=== PATIENT | male | born 1970 | race Hispanic/Latino ===

== ENCOUNTER 2017-11-05 14:15 | Emergency (ER) | payer OTHER ==
[2017-11-05] MEDS ORDERED: ASPIRIN 325 MG TAB ONE (16:10)
[2017-11-05 16:13] LABS: Absolute Lymphocytes (CBC) 1.6 K/uL (0.7-4.9); Absolute Monocytes 0.5 K/uL (0.1-1.3); Basophils % 0.6 % (0-1.3); Eosinophils % 1.6 % (0-4.4); Hematocrit 43.3 % (39.6-49.0); Lymphocytes % 19.2 % (15.3-44.8); MCV 94.9 fL (80-100); MPV 7.6 fL (7.6-11.3); Monocytes % 6.2 % (3.3-12.3); RBC Red Blood Cell Count 4.56 M/uL (4.33-5.43)
[2017-11-05 16:21] LABS: Bicarbonate 33 mEq/L (21-31); Glucose Level 65 mg/dL (65-120); Potassium 3.6 mEq/L (3.6-5.0); Sodium Level 138 mEq/L (135-145)
[2017-11-05 16:23] LABS: Protime INR 1.03
[2017-11-05 16:27] LABS: ALT/SGPT 18 IU/L (10-60); AST/SGOT 19 IU/L (10-42); Albumin 4.3 g/dL (3.2-5.5); BUN Blood Urea Nitrogen 19 mg/dL (6-20); Bilirubin Direct 0.2 mg/dL (0-0.2); Bilirubin Total 1.3 mg/dL (0.3-1.2); Glomerular Filtration Rate > 90 mL/min (=/>90); Protein, Total 7.6 g/dL (6.0-8.3)
--- NOTE | 2017-11-05 16:59 | RAD REPORT ---
EXAM DESCRIPTION: RAD - Chest Single View - 11/05/2017 4:53 pm CLINICAL HISTORY: Chest pain, shortness of breath. COMPARISON: None. FINDINGS: Portable technique limits examination quality. The lungs are underinflated but grossly clear. The heart is normal in size. No displaced fractures. IMPRESSION: Underinflated lungs.
--- NOTE | 2017-11-05 17:03 | ER ---
Nurse's Notes [facility] Name: Cristian Lan Age: 47 yrs Sex: Male : 1970 Arrival Date: 11/05/2017 Time: 14:21 Bed 15 Private MD: Diagnosis: Non-ST elevation (NSTEMI) myocardial infarction Presentation: 11/05 14:25 Presenting complaint: Patient states: Chest pain and SOB that is worse with deep aj breathing. Patient recently stopped taking his HTN medications and has been taking Phentermine for 2 weeks. Transition of care: patient was not received from another setting of care. Onset of symptoms was November 03, 2017. Care prior to arrival: None. 14:25 Method Of Arrival: Ambulatory aj 14:25 Acuity: JESSIKA 3 aj Triage Assessment: 14:27 General: Appears in no apparent distress. comfortable, Behavior is calm, cooperative, aj appropriate for age. Pain: Complains of pain in chest Pain currently is 3 out of 10 on a pain scale. Neuro: Level of Consciousness is awake, alert, obeys commands, Oriented to person, place, time, situation. Respiratory: Reports shortness of breath Airway is patent Respiratory effort is even, unlabored, Respiratory pattern is regular, symmetrical, Onset: The symptoms/episode began/occurred gradually, the patient has mild shortness of breath. Derm: Skin is intact, is healthy with good turgor, Skin is pink, warm \\T\\ dry. Historical: - Allergies: 14:27 No Known Allergies; aj - Home Meds: 14:27 phentermine 37.5 mg oral cap 1 cap once daily [Active]; aj 17:58 irbesartan-hydrochlorothiazide 150-12.5 mg oral tab 1 tab once daily [Active]; tw2 - PMHx: 14:27 Hypertension; aj - PSHx: 14:27 None; aj - Immunization history:: Adult Immunizations up to date. - Social history:: Smoking status: Patient/guardian denies using tobacco. Screenin:56 Abuse screen: Denies threats or abuse. Nutritional screening: No deficits noted. tw2 Tuberculosis screening: No symptoms or risk factors identified. Fall Risk None identified. Assessment: 15:45 General: Appears in no apparent distress. well groomed, Behavior is calm, cooperative, tw2 appropriate for age. Pain: Complains of pain in chest. Neuro: Level of Consciousness is awake, alert, obeys commands, Oriented to person, place, time, situation. Cardiovascular: Heart tones S1 S2 Capillary refill < 3 seconds Patient's skin is warm and dry. Rhythm is sinus rhythm. Cardiovascular: Reports chest pain. Respiratory: Airway is patent Respiratory effort is even, unlabored, Respiratory pattern is regular, symmetrical, Breath sounds are clear bilaterally. GI: No signs and/or symptoms were reported involving the gastrointestinal system. Abdomen is flat, Bowel sounds present X 4 quads. : No signs and/or symptoms were reported regarding the genitourinary system. EENT: No signs and/or symptoms were reported regarding the EENT system. Derm: No signs and/or symptoms reported regarding the dermatologic system. Musculoskeletal: Range of motion: intact in all extremities. 16:41 Reassessment: Patient appears in no apparent distress at this time. No changes from tw2 previously documented assessment. Patient and/or family updated on plan of care and expected duration. Pain level reassessed. Patient is alert, oriented x 3, equal unlabored respirations, skin warm/dry/pink. 17:40 Reassessment: Patient appears in no apparent distress at this time. No changes from tw2 previously documented assessment. Patient and/or family updated on plan of care and expected duration. Pain level reassessed. Patient is alert, oriented x 3, equal unlabored respirations, skin warm/dry/pink. 18:22 Reassessment: Patient appears in no apparent distress at this time. No changes from tw2 previously documented assessment. Patient and/or family updated on plan of care and expected duration. Pain level reassessed. Patient is alert, oriented x 3, equal unlabored respirations, skin warm/dry/pink. 19:30 General: Appears in no apparent distress. uncomfortable, well groomed, Behavior is ar4 calm, cooperative. Pain: Complains of pain in posterior chest and epigastric region Pain radiates to bilateral upper ribs Pain currently is 0 out of 10 on a pain scale. at worst was 7 out of 10 on a pain scale. Quality of pain is described as squeezing, Pain began 1 day ago. Is continuous, Alleviated by rest, Aggravated by Pt. reports, "Taking deep breaths makes it worse." Noted to be grimacing, Also complains of. Neuro: Level of Consciousness is awake, alert, obeys commands, Oriented to person, place, time, situation, Fashion Buyer are equal bilaterally Moves all extremities. Speech is normal, Facial symmetry appears normal, Pupils are PERRLA. Cardiovascular: Reports chest pain, shortness of breath, Pt. reports, "Shortness of breath is mild today, but yesterday it was moderate." Heart tones S1 S2 present Capillary refill < 3 seconds is brisk in right fingers Patient's skin is warm and dry. Pulses are all present. Rhythm is regular Chest pain is described as mild, quality is squeezing, is located in posterior chest wall epigastric area radiates to bilateral upper ribs began 1 day ago episodes are continuous is aggravated by breathing, is alleviated by rest. Respiratory: Airway is patent Respiratory effort is even, unlabored, Respiratory pattern is regular, symmetrical, Breath sounds are clear bilaterally. GI: Abdomen is flat, non-distended, Bowel sounds present X 4 quads. Abd is soft and non tender X 4 quads. : No signs and/or symptoms were reported regarding the genitourinary system. EENT: No signs and/or symptoms were reported regarding the EENT system. Derm: Skin is intact, is healthy with good turgor, Skin is dry, Skin is normal, Skin temperature is warm. Musculoskeletal: Range of motion: intact in all extremities. 19:50 General: repeat Troponin drawn and sent to lab. tc3 20:21 General: report called to [facility] spoke with Greyson Jorgensen RN utilized [facility] tc3 Communication, questions answered as warranted. Vital Signs: 14:27 BP 127 / 97; Pulse 93; Resp 19; Temp 97.8; Pulse Ox 98% on R/A; Weight 112.04 kg; aj Height 6 ft. 1 in. (185.42 cm); Pain 3/10; 15:45 BP 123 / 89; Pulse 86; Resp 20; Pulse Ox 99% on R/A; tw2 16:40 BP 120 / 91; Pulse 85; Resp 20; Pulse Ox 99% on R/A; tw2 17:40 BP 126 / 93; Pulse 84; Resp 17; Pulse Ox 100% on R/A; tw2 17:48 BP 126 / 92; Pulse 89; Resp 17; Pulse Ox 99% on R/A; tw2 18:21 BP 125 / 88; Pulse 76; Resp 22; Pulse Ox 98% on R/A; tw2 19:30 BP 127 / 93 RA Supine (auto/); Pulse 70; Resp 17; Temp 98.3(O); Pulse Ox 99% on R/A; ar4 Pain 0/10; 20:30 BP 119 / 95; Pulse 78; Resp 19; Temp 97.9(O); Pulse Ox 98% on R/A; Pain 0/10; tc3 14:27 Body Mass Index 32.59 (112.04 kg, 185.42 cm) aj 19:30 Pt. reports, "I have no pain right now, but yesterday it was a 7/10." ar4 Vitals: 20:30 Cardiac Rhythm Assessment Regular Sinus rhythm. tc3 ED Course: 14:21 Patient arrived in ED. mr 14:26 Triage completed. aj 14:27 Arm band placed on right wrist. Patient placed in waiting room, Patient notified of aj wait time. EKG completed in triage. Results shown to MD. 14:38 EKG done, by packaging tech. vh 15:23 Georgia Call RN is Primary Nurse. tw2 15:24 Nikita Leyva NP is PHCP. pm1 15:25 Ventura Daigle MD is Attending Physician. pm1 15:45 Bed in low position. Call light in reach. bus driver/monitor on. Pulse ox on. NIBP on. tw2 15:45 No provider procedures requiring assistance completed. Inserted saline lock: 20 gauge tw2 in left antecubital area, using aseptic technique. Blood collected. 16:05 X-ray completed. Portable x-ray completed in exam room. Patient tolerated procedure mh1 well. 17:02 Beba Kumar MD is Hospitalizing Provider. pm1 19:00 Report given to LUNA Price. tw2 19:15 Primary Nurse role handed off by Georgia Call RN tc3 19:15 Dee Zapien RN is Primary Nurse. tc3 20:31 Patient transferred, IV remains in place. tc3 Administered Medications: 15:53 Drug: Aspirin 325 mg Route: PO; tw2 16:53 Follow up: Response: No adverse reaction tw2 17:02 Drug: Lovenox 1 mg/kg Route: Sub-Q; Site: right lower abdomen; tw2 17:47 Follow up: Response: No adverse reaction tw2 17:04 Drug: Lopressor (metoprolol TARTRATE) 50 mg Route: PO; tw2 17:48 Follow up: Response: No adverse reaction tw2 17:05 Drug: Lopressor 5 mg Route: IVP; Site: left antecubital; tw2 17:48 Follow up: BP 126 / 92; Pulse 89 bpm; Resp 17 bpm; Pulse Ox 99% RA tw2 17:14 Drug: PlaVIX 300 mg Route: PO; tw2 17:48 Follow up: Response: No adverse reaction tw2 Outcome: 17:03 Decision to Hospitalize by Provider. pm1 19:50 ER care complete, transfer ordered by MD. pm1 19:55 Instructed on the need for transfer. tc3 20:28 Transferred by ground EMS to [facility], Transfer form completed. X-rays sent tc3 w/ patient. Note: chart to EMS crew, report to [facility] x2 20:28 Condition: stable 20:33 Patient left the ED. tc3 20:33 Attestation : I concur with the documentation charted by LEWIS Stovall. tc3 Signatures: Sofia Crooks RN RN Zenobia Roldan Nargis Brandon mh1 Isabel Abernathy Nikita Leyva, OPTOMETRIC AIDE OPTOMETRIC AIDE pm1 Georgia Call RN RN tw2 Dee Zapien RN RN tc3 Grace Arias ar4 Corrections: (The following items were deleted from the chart) 17:58 14:27 Home Meds: irbesartan oral oral; ted [facility]
--- NOTE | 2017-11-05 17:03 | EDPHYS ---
Physician Documentation [facility] Name: Cristian Lan Age: 47 yrs Sex: Male : 1970 Arrival Date: 11/05/2017 Time: 14:21 Bed 15 Private MD: ED Physician Ventura Daigle HPI: 11/05 15:45 This 47 yrs old Male presents to ER via Ambulatory with complaints of pm1 Shortness Of Breath, Chest Pain. 15:45 The patient has shortness of breath with light activity. Onset: The symptoms/episode pm1 began/occurred yesterday. The patient's shortness of breath is aggravated by exertion, light activity, walking, is alleviated by rest. Associated signs and symptoms: Pertinent positives: SOB, Pertinent negatives: non-productive cough, productive cough. Severity of symptoms: in the emergency department the symptoms have resolved. The patient has not experienced similar symptoms in the past. The patient has not recently seen a physician. Patient with shortness of breath and chest pain with light exertion onset yesterday. Patient reports resolution of symptoms with rest. Patient has been taking phentermine for weight loss for the past 2 weeks. Stopped taking his blood pressure medication for the past 1 month due to side effects of dizziness and ED. No nausea, vomiting, or diaphoresis. Historical: - Allergies: 14:27 No Known Allergies; - Home Meds: 14:27 phentermine 37.5 mg oral cap 1 cap once daily [Active]; aj 17:58 irbesartan-hydrochlorothiazide 150-12.5 mg oral tab 1 tab once daily [Active]; 2 - PMHx: 14:27 Hypertension; aj - PSHx: 14:27 None; aj - Immunization history:: Adult Immunizations up to date. - Social history:: Smoking status: Patient/guardian denies using tobacco. ROS: 15:45 Constitutional: Negative for fever, chills, and weight loss, Eyes: Negative for injury, pm1 pain, redness, and discharge, ENT: Negative for injury, pain, and discharge, Neck: Negative for injury, pain, and swelling. 15:45 Abdomen/GI: Negative for abdominal pain, nausea, vomiting, diarrhea, and constipation, Back: Negative for injury and pain, : Negative for injury, bleeding, discharge, and swelling, MS/Extremity: Negative for injury and deformity, Skin: Negative for injury, rash, and discoloration, Neuro: Negative for headache, weakness, numbness, tingling, and seizure. 15:45 Cardiovascular: Positive for chest pain, Negative for edema, palpitations. 15:45 Respiratory: Positive for dyspnea on exertion, shortness of breath. Exam: 15:45 Constitutional: This is a well developed, well nourished patient who is awake, alert, pm1 and in no acute distress. Head/Face: Normocephalic, atraumatic. Eyes: Pupils equal round and reactive to light, extra-ocular motions intact. Lids and lashes normal. Conjunctiva and sclera are non-icteric and not injected. Cornea within normal limits. Periorbital areas with no swelling, redness, or edema. ENT: Nares patent. No nasal discharge, no septal abnormalities noted. Tympanic membranes are normal and external auditory canals are clear. Oropharynx with no redness, swelling, or masses, exudates, or evidence of obstruction, uvula midline. Mucous membranes moist. Neck: Trachea midline, no thyromegaly or masses palpated, and no cervical lymphadenopathy. Supple, full range of motion without nuchal rigidity, or vertebral point tenderness. No Meningismus. Chest/axilla: Normal chest wall appearance and motion. Nontender with no deformity. No lesions are appreciated. Cardiovascular: Regular rate and rhythm with a normal S1 and S2. No gallops, murmurs, or rubs. No pulse deficits. Respiratory: Lungs have equal breath sounds bilaterally, clear to auscultation and percussion. No rales, rhonchi or wheezes noted. No increased work of breathing, no retractions or nasal flaring. Abdomen/GI: Soft, non-tender, with normal bowel sounds. No distension or tympany. No guarding or rebound. No evidence of tenderness throughout. Back: No spinal tenderness. No costovertebral tenderness. Full range of motion. Skin: Warm, dry with normal turgor. Normal color with no rashes, no lesions, and no evidence of cellulitis. MS/ Extremity: Pulses equal, no cyanosis. Neurovascular intact. Full, normal range of motion. 15:45 Neuro: Orientation: is normal, Motor: is normal, moves all fours, Sensation: is normal, no obvious gross deficits. Vital Signs: 14:27 BP 127 / 97; Pulse 93; Resp 19; Temp 97.8; Pulse Ox 98% on R/A; Weight 112.04 kg; aj Height 6 ft. 1 in. (185.42 cm); Pain 3/10; 15:45 BP 123 / 89; Pulse 86; Resp 20; Pulse Ox 99% on R/A; tw2 16:40 BP 120 / 91; Pulse 85; Resp 20; Pulse Ox 99% on R/A; tw2 17:40 BP 126 / 93; Pulse 84; Resp 17; Pulse Ox 100% on R/A; tw2 17:48 BP 126 / 92; Pulse 89; Resp 17; Pulse Ox 99% on R/A; tw2 18:21 BP 125 / 88; Pulse 76; Resp 22; Pulse Ox 98% on R/A; tw2 19:30 BP 127 / 93 RA Supine (auto/); Pulse 70; Resp 17; Temp 98.3(O); Pulse Ox 99% on R/A; ar4 Pain 0/10; 20:30 BP 119 / 95; Pulse 78; Resp 19; Temp 97.9(O); Pulse Ox 98% on R/A; Pain 0/10; tc3 14:27 Body Mass Index 32.59 (112.04 kg, 185.42 cm) aj 19:30 Pt. reports, "I have no pain right now, but yesterday it was a 7/10." ar4 MDM: 15:27 Patient medically screened. pm1 16:59 Data reviewed: vital signs. Data interpreted: Pulse oximetry: on room air is 99 %. pm1 Interpretation: normal. Counseling: I had a detailed discussion with the patient and/or guardian regarding: the historical points, exam findings, and any diagnostic results supporting the discharge/admit diagnosis, lab results, the need for further work-up and treatment in the hospital. 17:00 Physician consultation: Beba Kumar MD was contacted at 17:00, regarding admission, pm1 patient's condition, and will see patient in ED. 19:00 Physician consultation: Beba Kumar MD Patient requesting transfer to [address] or [facility]. 19:35 ED course: [facility] at ICU/CCU capacity. pm1 19:46 Physician consultation: Nito Taylor was contacted at 19:47, Accepted patient without pm1 report. 11/05 15:33 Order name: Basic Metabolic Panel pm1 11/05 15:33 Order name: BNP pm1 11/05 15:33 Order name: CBC with Diff pm1 11/05 15:33 Order name: LFT's pm1 11/05 15:33 Order name: Magnesium pm1 11/05 15:33 Order name: PT-INR pm1 11/05 15:33 Order name: Ptt, Activated pm1 11/05 15:33 Order name: Troponin (emerg Dept Use Only) pm1 11/05 16:21 Order name: Basic Metabolic Panel; Complete Time: 20:05 EDMS 11/05 16:25 Order name: Protime (+INR); Complete Time: 16:49 EDMS 11/05 16:25 Order name: PTT, Activated Partial Thromb; Complete Time: 16:49 EDMS 11/05 16:26 Order name: CBC with Automated Diff; Complete Time: 16:49 EDMS 11/05 16:27 Order name: Troponin (Emerg Dept Use Only); Complete Time: 16:49 EDMS 11/05 16:27 Order name: Liver (Hepatic) Function; Complete Time: 20:05 EDMS 11/05 15:28 Order name: EKG; Complete Time: 15:29 tw2 11/05 15:33 Order name: XRAY Chest (1 view) pm1 11/05 15:33 Order name: Cardiac monitoring; Complete Time: 15:48 pm1 11/05 15:33 Order name: EKG - Nurse/Tech; Complete Time: 15:41 pm1 11/05 15:33 Order name: IV Saline Lock; Complete Time: 15:40 pm1 11/05 16:27 Order name: Magnesium; Complete Time: 20:05 EDMS 11/05 16:29 Order name: BNP B-Type Natriuretic Peptide; Complete Time: 16:49 EDMS 11/05 16:59 Order name: RAD; Complete Time: 17:00 EDMS 11/05 18:08 Order name: Urine Dipstick--Ancillary (enter results) bd 11/05 19:31 Order name: Troponin (emerg Dept Use Only): Repeat at 19:45 tc3 11/05 20:23 Order name: Troponin (Emerg Dept Use Only); Complete Time: 20:24 EDMS 11/05 15:33 Order name: Labs collected and sent; Complete Time: 15:41 pm1 11/05 15:33 Order name: O2 Per Protocol; Complete Time: 15:42 pm1 11/05 15:33 Order name: O2 Sat Monitoring; Complete Time: 15:42 pm1 11/05 15:33 Order name: Urine Dipstick-Ancillary (obtain specimen); Complete Time: 17:54 pm1 Administered Medications: 15:53 Drug: Aspirin 325 mg Route: PO; tw2 16:53 Follow up: Response: No adverse reaction tw2 17:02 Drug: Lovenox 1 mg/kg Route: Sub-Q; Site: right lower abdomen; tw2 17:47 Follow up: Response: No adverse reaction tw2 17:04 Drug: Lopressor (metoprolol TARTRATE) 50 mg Route: PO; tw2 17:48 Follow up: Response: No adverse reaction tw2 17:05 Drug: Lopressor 5 mg Route: IVP; Site: left antecubital; tw2 17:48 Follow up: BP 126 / 92; Pulse 89 bpm; Resp 17 bpm; Pulse Ox 99% RA tw2 17:14 Drug: PlaVIX 300 mg Route: PO; tw2 17:48 Follow up: Response: No adverse reaction tw2 Disposition: 11/06 07:21 Co-signature as Attending Physician, Ventura Daigle MD I agree with the assessment and keena plan of care. Disposition: 11/05/17 19:50 Transfer ordered to [facility]. Diagnosis is Non-ST elevation (NSTEMI) myocardial infarction. - Reason for transfer: Patient request. - Accepting physician is Edinson Ortiz - Condition is Stable. - Problem is new. - Symptoms have improved. Signatures: Dispatcher [employer] Sofia Flores RN RN aj Anderson, Corey, MD MD cha Marinas, Patrick, [place] pm1 [place] Call RN RN tw2 Dee Zapien RN RN tc3 Corrections: (The following items were deleted from the chart) 11/05 17:58 14:27 Home Meds: irbesartan oral oral; ted tw2
[2017-11-05] MEDS ORDERED: ENOXAPARIN 100 MG/ML SYR SQ ONE (17:18)
[2017-11-05] MEDS ORDERED: METOPROLOL TARTRATE 5 MG/5 ML INJ IV ONE (17:18)
[2017-11-05] MEDS ORDERED: METOPROLOL TAR 50 MG TAB ONE (17:18)
[2017-11-05] MEDS ORDERED: CLOPIDOGREL 75 MG TABLET ONE (17:32)
[2017-11-05 19:30] LABS: Alkaline Phosphatase 89 IU/L (42-121)
[2017-11-05 20:49] LABS: Urine Blood NEGATIVE (NEG); Urine Glucose NEGATIVE (NEG); Urine Protein NEGATIVE (NEG); Urine Specific Gravity 1.015 (1.005-1.030); Urine pH 6.5 (5.0-7.0)
--- NOTE | 2017-11-05 21:45 | EKG ---
Test Date: 2017-11-05 Test Time: 14:32:58 Lead Simulation Modeling Engineer: LYLE MEASUREMENT RESULTS: Intervals: Rate: 87 WV: 176 QRSD: 104 QT: 358 QTc: 430 [place]: P: 32 WV: 176 QRS: -17 T: 27 INTERPRETIVE STATEMENTS: Normal sinus rhythm Moderate voltage criteria for LVH, may be normal variant Borderline ECG No previous ECG available for comparison Electronically Signed On 11-05-17 21:45:05 CDT by Eliel Jarvis
== END 2017-11-05 20:33 | disposition short-term general hospital (02) ==
LOC: ER 14:15 → ERHOLD 17:39 → UNDOADMIN 17:39
DX: I21.4 Non-ST elevation (NSTEMI) myocardial infarction (principal); I10 Essential (primary) hypertension
CPT/HCPCS: 36415; 71045; 80048; 80076; 81003; 83735; 83880; 84484; 85025; 85610; 85730; 93005; 96372; 96374; 99285; J1650